=== PATIENT | female | born 1960 | race Caucasian/White ===

== ENCOUNTER 2021-10-15 12:53 | Emergency (ER) | payer SELFPAY ==
[2021-10-15] MEDS ORDERED: Sodium Chloride 0.9% 10 ML Syringe FLUSH PRN (13:01)
[2021-10-15] MEDS ORDERED: Lactated Ringers 1,000 ML IV ONE (13:12)
[2021-10-15] MEDS ORDERED: Baclofen 10 MG Tab PO ONE (13:44)
[2021-10-15] MEDS ORDERED: Nystatin Crm 15 GM Tube TOP ONE (13:51)
[2021-10-15] MEDS ORDERED: Cyproheptadine 4 MG Tab PO ONE (14:53)
[2021-10-15] MEDS ORDERED: Sodium Chloride 0.9% 1,000 ML IV SCH (15:00)
[2021-10-15] MEDS ORDERED: Insulin Glargine,Human Rec. Analog 100 Units/ML 3 ML Pen SUBCUT ONE (19:38)
== END 2021-10-15 21:07 | disposition home or self-care (01) ==
LOC: JP.ED 12:53
DX: R25.8 Other abnormal involuntary movements (principal); M62.838 Other muscle spasm; R01.1 Cardiac murmur, unspecified; R73.9 Hyperglycemia, unspecified; Z72.0 Tobacco use
CPT/HCPCS: 36415; 70551; 80048; 81001; 82009; 82140; 82550; 82803; 83605; 84145; 84484; 86140; 93005; 99285; A9270; J1815; J7030; J7120